=== PATIENT | female | born 2005 | race Caucasian/White ===

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

== ENCOUNTER 2025-02-18 07:51 | Day surgery (SDC) | payer MEDICAID ==
[2025-02-18] MEDS: Lactated Ringers 1,000 ML IV SCH (08:19)
[2025-02-18] MEDS ORDERED: Propofol 200 MG/20 ML SDV ONE (08:23)
[2025-02-18] MEDS ORDERED: fentaNYL 50 MCG/ML SDV ONE (08:23)
[2025-02-18 10:50] VITALS: BP 98/63; PULSE 44
== END 2025-02-18 11:00 | disposition home or self-care (01) ==
LOC: JP.SDS 07:51
PROVIDERS: ATTEND Surgery
DX: K20.90 Esophagitis, unspecified without bleeding (principal); K22.89 Other specified disease of esophagus; F17.200 Nicotine dependence, unspecified, uncomplicated
CPT/HCPCS: 00731; 36415; 43239; 84703; J2704; J3010; J7120